=== PATIENT | male | born 1945 | race Caucasian/White ===

== ENCOUNTER 2016-10-08 00:33 | Inpatient (IN) | payer OTHER, MEDICARE ==
[~2016-10-08] VITALS: Ht 172.7 cm; Wt 133.6 kg
[2016-10-08] VITALS (11 sets, daily range): BP systolic 99–143; BP diastolic 60–83; PULSE 63–81; TEMP 36.6–37.9; O2SAT 93–96; Ht 172.7 cm; Wt 133.6 kg
[2016-10-08] MEDS ORDERED: SODIUM CHLORIDE 0.9% 1000ML 1,000 ML IV STA (01:01)
--- NOTE | 2016-10-08 01:02 | EMERGENCY ROOM VISIT NOTE ---
History Report prepared by Maryibe: Lois Covington Under the Supervision of: Dr. Lois Diaz M.D. First contact with patient: 00:42 Chief Complaint: RECTAL PAIN Stated Complaint: RECTAL PAIN - HEMORROID History of Present Illness The patient is a 70 year old male who presents to the Emergency Room with complaints of worsening rectal pain over the past 3 weeks. His current discomfort is a 10/10 in severity. The patient states that he was constipated 3 weeks ago and after finally having a bowel movement, he noticed that he had a hard mass in the rectal area. Since then, it has protruded farther out of his rectum. Since his pain began, he has not been eating much. He has not had a bowel movement since "cleaning himself out" 3 weeks ago. The patient believes that it could be a hemorrhoid. Source of History: patient Onset: 3 weeks ago Position: other (rectal) Symptom Intensity: 10/10 Timing: worsening Note: Other symptoms: constipation Review of Systems See HPI for pertinent positives & negatives. A total of 10 systems reviewed and were otherwise negative. Past Medical & Surgical Medical Problems: (1) Dyslipidemia (2) Hypertension (3) Sleep apnea Surgical Problems: (1) Status post cholecystectomy Family History Heart disease Social History Smoking Status: Never Smoker Marital Status: Housing Status: lives with significant other Occupation Status: retired Current/Historical Medications Scheduled Acetaminophen (Tylenol Arthritis Ext Rel), 650 MG PO BID Aspirin (Aspirin 81), 81 MG PO 3XWK Atorvastatin (Lipitor), 40 MG PO DAILY Cholecalciferol (Vitamin D3), 1,000 UNITS PO DAILY Ciprofloxacin Hcl (Cipro), 500 MG PO BID Docusate Sodium (Stool Softener), 100 MG PO BID Docusate Sodium (Colace), 1 CAP PO BID Hydrochlorothiazide (Hctz), 50 MG PO DAILY Lansoprazole (Prevacid), 15 MG PO DAILY Lisinopril (Zestril), 20 MG PO DAILY Metronidazole (Flagyl), 250 MG PO TID Multivitamin (Multivitamin), 1 TAB PO DAILY Scheduled PRN Hydrocodone/Acetaminophen 5MG/325MG (Keene 5MG/325MG), 1-2 TABLET PO Q4H PRN for Pain Allergies Coded Allergies: No Known Allergies (Unverified , 10/08/16) Physical Exam Vital Signs Date Time Temp Pulse Resp B/P Pulse Ox O2 Delivery O2 Flow Rate FiO2 10/08/16 02:05 84 20 122/69 94 Room Air 10/08/16 01:20 93 10/08/16 00:37 37.0 104 20 150/86 96 Room Air Physical Exam Vital signs reviewed. General: Well-appearing 70 year old male, in no significant distress. HEENT: No scleral icterus, PERRLA, neck supple. Atraumatic. Cardiovascular: Regular rate and rhythm, no extra sounds. Pulmonary: Clear to auscultation bilaterally, normal work of breathing. Abdomen: Obese, soft, nontender, nondistended, positive bowel sounds. Rectal: 2 cm erythematous and fluctuant area to the posterior aspect of the rectum with tenderness to palpation. Musculoskeletal: Atraumatic, no peripheral edema. Neurologic: Patient awake alert and oriented x 3, full strength in all 4 extremities. Cranial nerves 2 through 12 grossly intact. Skin: Warm, dry, no rash Medical Decision & Procedures ER Provider Diagnostic Interpretation: CT results as stated below per my review and radiologist interpretation: CT ABDOMEN & PELVIS: Right perianal fluid collection measuring approximately 4.4 x 2.5 cm with surroudnign stranding compatible with abscess. Fatty replacement of the pancreas. Nonspecific mild bilateral perinephric stranding. Small fat- containing inguinal hernias. Prior cholecystectomy. Additional incidental findings. Radiologist; Madison Romero MD Laboratory Results Test 10/08/16 01:10 Immature Granulocyte % (Auto) 0.6 % White Blood Count 15.75 K/uL (4.8-10.8) Red Blood Count 4.47 M/uL (4.7-6.1) Hemoglobin 13.6 g/dL (14.0-18.0) Hematocrit 40.0 % (42-52) Mean Corpuscular Volume 89.5 fL (80-100) Mean Corpuscular Hemoglobin 30.4 pg (25-34) Mean Corpuscular Hemoglobin Concent 34.0 g/dl (32-36) Platelet Count 284 K/uL (130-400) Mean Platelet Volume 10.0 fL (7.4-10.4) Neutrophils (%) (Auto) 79.7 % Lymphocytes (%) (Auto) 9.5 % Monocytes (%) (Auto) 9.1 % Eosinophils (%) (Auto) 0.8 % Basophils (%) (Auto) 0.3 % Neutrophils # (Auto) 12.56 K/uL (1.4-6.5) Lymphocytes # (Auto) 1.50 K/uL (1.2-3.4) Monocytes # (Auto) 1.43 K/uL (0.11-0.59) Eosinophils # (Auto) 0.12 K/uL (0-0.5) Basophils # (Auto) 0.05 K/uL (0-0.2) Immature Granulocyte # (Auto) 0.09 K/uL (0.00-0.02) Red Blood Cell Morphology Unremarkable Total Bilirubin 0.7 mg/dl (0.2-1) Direct Bilirubin 0.2 mg/dl (0-0.2) Aspartate Amino Transf (AST/SGOT) 29 U/L (15-37) Alanine Aminotransferase (ALT/SGPT) 37 U/L (12-78) Alkaline Phosphatase 75 U/L (45-117) Total Protein 7.3 gm/dl (6.4-8.2) Albumin 2.8 gm/dl (3.4-5.0) Laboratory results per my review. Medications Administered Medications (Trade) Dose Ordered Sig/Kathryn Route Start Time Stop Time Status Last Admin Dose Admin Sodium Chloride (Nss 1000ml) 1,000 ml @ 125 mls/hr Q8H STAT IV 10/08/16 01:01 10/08/16 04:22 DC 10/08/16 01:01 125 MLS/HR Ciprofloxacin/ Dextrose (Cipro / D5w) 400 mg NOW STAT IV 10/08/16 02:13 10/08/16 02:15 DC 10/08/16 02:25 400 MG Metronidazole (Flagyl / Nss) 500 mg NOW STAT IV 10/08/16 02:13 10/08/16 02:15 DC 10/08/16 02:25 500 MG ED Course 0055: The patient was evaluated in room A10. A complete history and physical examination was performed. 0101: Ordered NSS 1000 ml @ 125 mls/hr IV. 0213: Ordered Flagyl/NSS 500 mg IV, Cipro/D5w 400 mg IV. 0239: I discussed the case with Dr. Bruno - General Surgery. He recommended starting the patient on antibiotics and to speak with medicine regarding hospitalization. 0241: Upon reevaluation, the patient is resting comfortably. I discussed laboratory and radiographic results with the patient. He verbalized agreement of the treatment plan. 0254: I spoke with Dr. Tucker of the [facility]. The patient will be evaluated for further management and care. Medical Decision Differential diagnosis: Perirectal abscess, hemorrhoid, diverticulitis, enteric fistula, rectal fissure , rectal prolapse. This pt was evaluated and appeared to be in no distress. IV access was obtained and lab work was drawn. Pt was hydrated with NSS. Lab work reveals a leukocytosis and the pt was medicated with IV cipro and flagyl. CT abd pelvis reveals a perirectal abscess. Case was d/w Dr Bruno of surgery who has requested admission to the hospitalist service. Dr Tucker was c/s. Pt is aware of the plan and agrees. Consults Time Called: [phone] Consulting Physician: Dr. Bruno - General Surgery Returned Call: [phone] I discussed the case with him. He recommended starting the patient on antibiotics and to speak with medicine regarding hospitalization. Additional Consults: Time Called: 024 Consulted Physician: Dr. Tucker - [facility] Returned Call: 025 Additional Comments: I discussed the case with him. The patient will be evaluate for further management. Impression Primary Impression: Perirectal abscess Scribe Attestation The scribe's documentation has been prepared under my direction and personally reviewed by me in its entirety. I confirm that the note above accurately reflects all work, treatment, procedures, and medical decision making performed by me. Departure Information Dispostion Being Evaluated By Hospitalist Prescriptions Docusate Sodium (COLACE) 100 Mg Cap 1 CAP PO BID for 15 Days, #30 CAP Prov: Alexi Chang MD 10/09/16 Metronidazole (Flagyl) 250 Mg Tab 250 MG PO TID, #30 TAB Prov: Agustín BrunoO. 10/08/16 Ciprofloxacin Hcl (CIPRO) 500 Mg Tab 500 MG PO BID, #20 TAB Prov: Agustín BrunoO. 10/08/16 Hydrocodone/Acetaminophen 5MG/325MG (Keene 5MG/325MG) Tab 1-2 TABLET PO Q4H Y for Pain, #40 TAB Prov: Agustín BrunoO. 10/08/16 Referrals No Doctor, Assigned (PCP) Patient Instructions [facility]
[2016-10-08] MEDS ORDERED: OPTIRAY 320 IV PRN (01:15)
[2016-10-08 01:23] LABS: MEAN CELL VOLUME 89.5 fL (80-100); MEAN CORPUSCULAR HEMOGLOBIN 30.4 pg (25-34); PLATELET COUNT 284 K/uL (130-400); RED BLOOD COUNT 4.47 M/uL (4.7-6.1); WHITE BLOOD COUNT 15.75 K/uL (4.8-10.8)
[2016-10-08] MEDS ORDERED: LISI-725 PO (01:29)
[2016-10-08] MEDS ORDERED: HYDR50TA3 PO (01:30)
[2016-10-08] MEDS ORDERED: ATOR-24 PO (01:31)
[2016-10-08] MEDS ORDERED: LANS15CA6 PO (01:31)
[2016-10-08] MEDS ORDERED: MULT-506 PO (01:32)
[2016-10-08] MEDS ORDERED: ASPI-435 PO (01:33)
[2016-10-08] MEDS ORDERED: DOCU100C PO (01:35)
[2016-10-08] MEDS ORDERED: ACET1TAB84 PO (01:36)
[2016-10-08] MEDS ORDERED: CHOL1000 PO (01:38)
[2016-10-08 01:41] LABS: BASO % 0.3 %; BASO ABS # 0.05 K/uL (0-0.2); COMPLETE YES; EOS % 0.8 %; IG% 0.6 %; LYMPH % 9.5 %; MONO % 9.1 %; NEUT % 79.7 %
[2016-10-08 01:42] LABS: BUN/CREATININE RATIO 13.4 (10-20); CALCIUM 9.6 mg/dl (8.5-10.1); CREATININE 1.1 mg/dl (0.60-1.40); MAGNESIUM 1.6 mg/dl (1.8-2.4); POTASSIUM 3.5 mmol/L (3.5-5.1)
[2016-10-08] MEDS ORDERED: METRONIDAZOLE 500MG / 100ML NSS IV STA (02:13)
[2016-10-08] MEDS ORDERED: CIPROFLOXACIN 400MG / 200ML D5W IV STA (02:13)
--- NOTE | 2016-10-08 03:39 | History and Physical ---
History & Physical Date & Time of Service: Oct 08, 2016 at 03:39 . Chief Complaint: rectal pain . Primary Care Physician: History of Present Illness Source: patient, hospital records 70 YO male from [place], visiting family in the area. History of hypertension, dyslipidemia, sleep apnea, and other problems noted below. Developed rectal pain a few weeks ago which has worsened. Pain: nonradiating, constant, aggravated by sitting, severe intensity. He did not try taking any analgesics at home. No associated fever; no hematochezia. . Past Medical/Surgical History Chronic Medical Problems: (1) Dyslipidemia Status: Chronic (2) Hypertension Status: Chronic (3) Sleep apnea Status: Chronic Surgical Problems: (1) Status post cholecystectomy Status: Chronic . Family History FATHER Alcoholism MOTHER Cervical cancer BROTHER Coronary artery disease BROTHER Coronary artery disease Social History Smoking Status: Never Smoker Alcohol Use: occasionally Marital Status: Occupational Status: retired Allergies Coded Allergies: No Known Allergies (Unverified , 10/08/16) Home Medications Scheduled Acetaminophen (Tylenol Arthritis Ext Rel), 650 MG PO BID Aspirin (Aspirin 81), 81 MG PO 3XWK Atorvastatin (Lipitor), 40 MG PO DAILY Cholecalciferol (Vitamin D3), 1,000 UNITS PO DAILY Docusate Sodium (Stool Softener), 100 MG PO BID Hydrochlorothiazide (Hctz), 50 MG PO DAILY Lansoprazole (Prevacid), 15 MG PO DAILY Lisinopril (Zestril), 20 MG PO DAILY Multivitamin (Multivitamin), 1 TAB PO DAILY Review of Systems Constitutional: + weight loss (few pounds intentionally), No fever Eyes: No diplopia, No worsening of vision ENT: No hearing loss, No nasal symptoms, No sore throat Respiratory: + problem reported (sleep apnea, uses CPAP), No cough, No shortness of breath Cardiovascular: + edema, No chest pain, No palpitations Abdomen: + constipation, + pain (perirectal), No GI bleeding, No diarrhea, No nausea, No vomiting Musculoskeletal: + joint pain (knee pain) Genitourinary - Male: No dysuria, No hematuria Neurologic: + problem reported (occasional headaches) Endocrine: No excessive thirst, No excessive urination Hematologic / Lymphatic: + abnormal bleeding/bruising (bruises easily) Integumentary: No new/changing skin lesions, No rash Physical Exam Vital Signs Date Time Temp Pulse Resp B/P Pulse Ox O2 Delivery O2 Flow Rate FiO2 10/08/16 02:05 84 20 122/69 94 Room Air 10/08/16 01:20 93 10/08/16 00:37 37.0 104 20 150/86 96 Room Air General Appearance: WD/WN, + mild distress Head: normocephalic, atraumatic Eyes: normal inspection, PERRL, EOMI, sclerae normal, + pertinent finding ( conjunctivae pink) ENT: normal ENT inspection, hearing grossly normal, pharynx normal, + pertinent finding (no upper teeth) Neck: supple, no adenopathy, thyroid normal, no JVD, trachea midline Respiratory/Chest: lungs clear, no respiratory distress, no accessory muscle use Cardiovascular: regular rate, rhythm, no gallop, no JVD, no murmur, normal peripheral pulses, + pertinent finding (1+ pretibial edema) Abdomen/GI: normal bowel sounds, non tender, soft, no organomegaly, no pulsatile mass, + pertinent finding (right perirectal induration + tenderness) Extremities/Musculoskelatal: normal inspection, no calf tenderness, normal capillary refill Neurologic/Psych: tin stacker II-XII nml as tested (PERRL, EOMI, no facial palsy), alert, normal mood/affect, oriented x 3 Skin: normal color, warm/dry, no rash, + pertinent finding (left pretibial abrasion without erythema or drainage) Lymphatic: no adenopathy Diagnostics Laboratory Results Results Past 24 Hours Test 10/08/16 01:10 Range/Units White Blood Count 15.75 4.8-10.8 K/uL Red Blood Count 4.47 4.7-6.1 M/uL Hemoglobin 13.6 14.0-18.0 g/dL Hematocrit 40.0 42-52 % Mean Corpuscular Volume 89.5 80-100 fL Mean Corpuscular Hemoglobin 30.4 25-34 pg Mean Corpuscular Hemoglobin Concent 34.0 32-36 g/dl Platelet Count 284 130-400 K/uL Mean Platelet Volume 10.0 7.4-10.4 fL Neutrophils (%) (Auto) 79.7 % Lymphocytes (%) (Auto) 9.5 % Monocytes (%) (Auto) 9.1 % Eosinophils (%) (Auto) 0.8 % Basophils (%) (Auto) 0.3 % Neutrophils # (Auto) 12.56 1.4-6.5 K/uL Lymphocytes # (Auto) 1.50 1.2-3.4 K/uL Monocytes # (Auto) 1.43 0.11-0.59 K/uL Eosinophils # (Auto) 0.12 0-0.5 K/uL Basophils # (Auto) 0.05 0-0.2 K/uL RDW Standard Deviation 41.1 36.4-46.3 fL RDW Coefficient of Variation 12.7 11.5-14.5 % Immature Granulocyte % (Auto) 0.6 % Immature Granulocyte # (Auto) 0.09 0.00-0.02 K/uL Red Blood Cell Morphology Unremarkable Sodium Level 137 136-145 mmol/L Potassium Level 3.5 3.5-5.1 mmol/L Chloride Level 99 98-107 mmol/L Carbon Dioxide Level 28 21-32 mmol/L Anion Gap 10.0 3-11 mmol/L Blood Urea Nitrogen 15 7-18 mg/dl Creatinine 1.10 0.60-1.40 mg/dl Est Creatinine Clear Calc Drug Dose 81.1 ml/min Estimated GFR () 77.3 Estimated GFR (Non- 66.7 BUN/Creatinine Ratio 13.4 10-20 Random Glucose 135 70-99 mg/dl Calcium Level 9.6 8.5-10.1 mg/dl Magnesium Level 1.6 1.8-2.4 mg/dl Total Bilirubin 0.7 0.2-1 mg/dl Direct Bilirubin 0.2 0-0.2 mg/dl Aspartate Amino Transf (AST/SGOT) 29 15-37 U/L Alanine Aminotransferase (ALT/SGPT) 37 12-78 U/L Alkaline Phosphatase 75 45-117 U/L Total Protein 7.3 6.4-8.2 gm/dl Albumin 2.8 3.4-5.0 gm/dl Diagnostic Radiology PORT CHEST X-RAY (preliminary interpretation by undersigned): atelectasis left base no infiltrates, effusions, CHF CT ABDOMEN AND PELVIS (preliminary interpretation by [facility]) right perirectal abscess . EKG EKG performed at 03:42 reviewed and demonstrated NSR at 86 / minute, no acute ST or T-wave abnormalities. . Impression Assessment and Plan PERIRECTAL ABSCESS ED physician discussed case with General Surgery. IV antibiotic therapy with ciprofloxacin and metronidazole. I&D anticipated. Analgesics PRN. HYPERTENSION Hemodynamically stable. Hold lisinopril an HCTZ for surgery, then resume postoperatively. SLEEP APNEA Continue CPAP. HYPOMAGNESEMIA Mg = 1.6. Hypomagnesemia probably due to diuretic therapy. IV replacement. Follow. DYSLIPIDEMIA Continue atorvastatin. VTE PROPHYLAXIS No anticoagulants in anticipation of surgery. SCD's. Ambulate. RESUSCITATION STATUS Discussed with patient. He has a living will. He would like resuscitation attempted in the event of a cardiopulmonary arrest if there is a reasonable chance of a meaningful recovery, but does not want prolonged extraordinary measures if prognosis is poor. Therefore, code status = "Level 1" (full resuscitation). INCOMPLETE DATA Records requested from his district branch manager in [place]. DISPOSITION Admit to Med-Surg Unit. Expected discharge to home. Follow-up with his medical providers in [place]. . VTE Prophylaxis VTE Risk Assessment Done? Y/N: Yes Risk Level: Moderate Given or contraindicated: SCD's
[2016-10-08] MEDS ORDERED: HYDROmorphone INJ 1 MG/ML SYR IV PRN ×2 (03:45→08:45)
[2016-10-08] MEDS ORDERED: ACETAMINOPHEN 500 MG TAB PO PRN (03:45)
[2016-10-08] MEDS ORDERED: POTASSIUM CHLORIDE IV SCH (04:00)
[2016-10-08] MEDS ORDERED: MAG SULFATE IV SCH (04:00)
[2016-10-08] MEDS ORDERED: [UNRECOGNIZED DRUG - OTHER] IV SCH (04:00)
--- NOTE | 2016-10-08 06:52 | Surgery Consultation ---
Consultation Date of Consultation: Oct 08, 2016. Attending Physician: Alexi Chang MD Reason for Consultation: saleem rectal abcess History of Present Illness pt with about a mos history of constipation....yesterday had severe /unbearable pain and came to ER Past Medical/Surgical History Medical Problems: (1) Dyslipidemia Status: Chronic (2) Hypertension Status: Chronic (3) Perirectal abscess Status: Acute (4) Sleep apnea Status: Chronic Surgical Problems: (1) Status post cholecystectomy Status: Chronic Family History Alcoholism FATHER Cervical cancer MOTHER Coronary artery disease BROTHER BROTHER Social History Smoking Status: Never Smoker Alcohol Use: occasionally Marital Status: Housing Status: lives with significant other Occupation Status: retired Allergies Coded Allergies: No Known Allergies (Unverified , 10/08/16) Home Medications Scheduled Acetaminophen (Tylenol Arthritis Ext Rel), 650 MG PO BID Aspirin (Aspirin 81), 81 MG PO 3XWK Atorvastatin (Lipitor), 40 MG PO DAILY Cholecalciferol (Vitamin D3), 1,000 UNITS PO DAILY Docusate Sodium (Stool Softener), 100 MG PO BID Hydrochlorothiazide (Hctz), 50 MG PO DAILY Lansoprazole (Prevacid), 15 MG PO DAILY Lisinopril (Zestril), 20 MG PO DAILY Multivitamin (Multivitamin), 1 TAB PO DAILY Current Inpatient Medications Current Inpatient Medications Medications (Trade) Dose Ordered Sig/Kathryn Route Start Time Stop Time Status Last Admin Dose Admin Ioversol (Optiray 320) 100 ml UD PRN IV 10/08/16 01:15 10/12/16 01:14 Hydromorphone HCl (Dilaudid Inj) 1 mg Q2H PRN IV 10/08/16 03:45 10/22/16 03:44 Atorvastatin Calcium (Lipitor Tab) 40 mg DAILY PO 10/08/16 09:00 11/07/16 08:59 Docusate Sodium (coLACE CAP) 100 mg BID PO 10/08/16 09:00 11/07/16 08:59 Multivitamins (Multivitamin Tab) 1 tab DAILY PO 10/08/16 09:00 11/07/16 08:59 Pantoprazole Sodium (Protonix Tab) 40 mg QAM PO 10/08/16 09:00 11/07/16 08:59 Acetaminophen (Tylenol Tab) 1,000 mg Q8 PRN PO 10/08/16 03:45 11/07/16 03:44 Hydrochlorothiazide 50 mg 50 mg DAILY PO 10/09/16 09:00 11/08/16 08:59 Magnesium Sulfate 1 gm/Potassium Chloride 20 meq/ Dextrose/Lactated Ringer's 1,012 ml @ 150 mls/hr Q6H45M IV 10/08/16 04:00 11/07/16 03:59 10/08/16 05:12 150 MLS/HR Ciprofloxacin/ Dextrose 400 mg/ Prmx 200 ml @ 100 mls/hr Q12@0200,1400 IV 10/08/16 14:00 10/18/16 13:59 Metronidazole/Prmx (Flagyl / Nss/ Premixed Nss) 100 ml @ 100 mls/hr Q8@0200,1000,1800 IV 10/08/16 10:00 10/18/16 09:59 Aspirin (Ecotrin Tab) 81 mg MoWeFr@0900 PO 10/11/16 09:00 11/10/16 08:59 Lisinopril (Zestril Tab) 20 mg DAILY PO 10/09/16 09:00 11/08/16 08:59 Physical Exam Date Time Temp Pulse Resp B/P Pulse Ox O2 Delivery O2 Flow Rate FiO2 10/08/16 04:10 Room Air 10/08/16 04:10 36.6 80 18 131/80 96 Room Air 10/08/16 03:44 136/82 10/08/16 02:05 84 20 122/69 94 Room Air 10/08/16 01:20 93 10/08/16 00:37 37.0 104 20 150/86 96 Room Air General Appearance: + mild distress Head: normocephalic Eyes: EOMI, sclerae normal ENT: hearing grossly normal Neck: supple, no adenopathy Respiratory/Chest: lungs clear Cardiovascular: no edema Abdomen/GI: non tender, soft, + pertinent finding (moderate sized fluid collection on right side of rectum. extremely tender. unable to perform formal rectal exam secondary to pain) Neurologic/Psych: normal mood/affect, oriented x 3 Skin: warm/dry, no rash Laboratory Results Last 24 Hours Test 10/08/16 01:10 White Blood Count 15.75 K/uL Red Blood Count 4.47 M/uL Hemoglobin 13.6 g/dL Hematocrit 40.0 % Mean Corpuscular Volume 89.5 fL Mean Corpuscular Hemoglobin 30.4 pg Mean Corpuscular Hemoglobin Concent 34.0 g/dl Platelet Count 284 K/uL Mean Platelet Volume 10.0 fL Neutrophils (%) (Auto) 79.7 % Lymphocytes (%) (Auto) 9.5 % Monocytes (%) (Auto) 9.1 % Eosinophils (%) (Auto) 0.8 % Basophils (%) (Auto) 0.3 % Neutrophils # (Auto) 12.56 K/uL Lymphocytes # (Auto) 1.50 K/uL Monocytes # (Auto) 1.43 K/uL Eosinophils # (Auto) 0.12 K/uL Basophils # (Auto) 0.05 K/uL RDW Standard Deviation 41.1 fL RDW Coefficient of Variation 12.7 % Immature Granulocyte % (Auto) 0.6 % Immature Granulocyte # (Auto) 0.09 K/uL Red Blood Cell Morphology Unremarkable Sodium Level 137 mmol/L Potassium Level 3.5 mmol/L Chloride Level 99 mmol/L Carbon Dioxide Level 28 mmol/L Anion Gap 10.0 mmol/L Blood Urea Nitrogen 15 mg/dl Creatinine 1.10 mg/dl Est Creatinine Clear Calc Drug Dose 81.1 ml/min Estimated GFR () 77.3 Estimated GFR (Non- 66.7 BUN/Creatinine Ratio 13.4 Random Glucose 135 mg/dl Calcium Level 9.6 mg/dl Magnesium Level 1.6 mg/dl Total Bilirubin 0.7 mg/dl Direct Bilirubin 0.2 mg/dl Aspartate Amino Transf (AST/SGOT) 29 U/L Alanine Aminotransferase (ALT/SGPT) 37 U/L Alkaline Phosphatase 75 U/L Total Protein 7.3 gm/dl Albumin 2.8 gm/dl Assessment & Plan 1. perirectal abcess will need I and D with sedation discussed risk/options/answered questions cont IV antibiotics will perform artis
[2016-10-08] MEDS ORDERED: FENTANYL CITRATE INJ 50 MCG/1 ML 2 ML VIAL ONE (07:14)
[2016-10-08] MEDS ORDERED: MIDAZOLAM HCL 1 MG/ML 2ML VIAL ONE (07:14)
[2016-10-08] MEDS ORDERED: LIDOCAINE HCL 2% 2 ML VIAL (20MG/ML) ONE (07:19)
[2016-10-08] MEDS ORDERED: PROPOFOL IV EMULSION 10 MG/ML 20 ML VIAL IV ONE (07:19)
[2016-10-08] MEDS ORDERED: ONDANSETRON INJ 2 MG/ML 2 ML VIAL ONE (07:19)
--- NOTE | 2016-10-08 07:23 | DIAGNOSTIC IMAGING REPORT ---
SINGLE VIEW CHEST CLINICAL HISTORY: Perianal abscess. FINDINGS: An AP, portable, upright chest radiograph is obtained. No prior studies are available for comparison at the time of dictation. The examination is degraded by portable technique and patient rotation. The heart is enlarged and there is atherosclerotic calcification of the thoracic aorta. There is minimal bibasilar atelectasis. Small calcified granulomas are suspected. No airspace consolidation, large pleural effusion, or pneumothorax is seen. The skeletal structures are osteopenic. The bony thorax is grossly intact. IMPRESSION: Mild cardiac enlargement with no acute cardiopulmonary abnormality. Electronically signed by: Zheng Sahu M.D. 10/08/2016 7:22 AM Dictated Date/Time: 10/08/2016 7:21 AM
--- NOTE | 2016-10-08 07:48 | DIAGNOSTIC IMAGING REPORT ---
CT SCAN OF THE ABDOMEN AND PELVIS WITH IV CONTRAST CLINICAL HISTORY: Perianal abscess. COMPARISON STUDY: No priors. TECHNIQUE: Following the IV administration of 92 cc of Optiray 320, CT scan of the abdomen and pelvis is performed from the lung bases to the proximal femora. Images are reviewed in the axial, sagittal, and coronal planes. IV contrast was administered without complication. Automated dose control exposure was utilized. CT DOSE: 1612.22 mGycm FINDINGS: Lung bases: The heart is mildly enlarged and without pericardial effusion. The lung bases are clear. There is a tiny hiatal hernia. Liver: The contrast-enhanced liver is normal in size, contour, and attenuation. There is no intrahepatic biliary ductal dilatation. The hepatic veins and portal veins are patent. Gallbladder: Surgically absent noting clips in the gallbladder fossa. Spleen: Normal in size and attenuation. Pancreas: There is near complete fatty atrophy of the pancreas. Adrenal glands: Unremarkable. Kidneys: The contrast enhanced kidneys are atrophic and without hydronephrosis. Bilateral parapelvic cysts are noted. The kidneys enhance symmetrically. Abdominal vasculature: The abdominal aorta is normal in course and caliber noting mild to moderate atherosclerotic calcification. Bowel: The small bowel and colon are normal in course and caliber. There is mild colonic fecal retention. The appendix is well-visualized and normal. There is a thick walled and peripherally enhancing perianal fluid collection. This is likely located just anterior to the anal sphincter and measures approximately 5 x 3.5 x 2.5 cm. There is surrounding inflammatory change in the perineal fat, left greater than right consistent with cellulitis. There is no clear evidence of fistulous tract. This is located below the levator musculature. Peritoneum: There is no intraperitoneal free air or abdominal ascites. Lymphadenopathy: None. Pelvic viscera: The bladder, prostate, and seminal vesicles are normal as visualized. There are small fat-containing inguinal hernias. Skeletal structures: The skeletal structures are osteopenic. There is mild lumbosacral spondylosis. No lytic or blastic lesions are seen. IMPRESSION: 1. Findings are consistent with a 5 x 3.5 x 2.5 cm perianal abscess with surrounding cellulitis. This appears to be located just anterior to the anal ring, and surrounding inflammation is slightly greater on the left than the right. No fistula is identified. 2. Additional findings as above. Electronically signed by: Zheng Sahu M.D. 10/08/2016 7:46 AM Dictated Date/Time: 10/08/2016 7:39 AM
--- NOTE | 2016-10-08 08:22 | Discharge Instructions ---
Discharge Instructions Admission Reason for Admission: Perirectal Abscess Discharge Discharge Diagnosis / Problem: perirectal abcess Discharge Goals Goal(s): Decrease discomfort, Improve function Activity Recommendations Activity Limitations: resume your previous activity Exercise/Sports Limitations: until after follow-up appointment Shower/Bathe: tomorrow . Instructions / Follow-Up Instructions / Follow-Up call tuesday [phone] for follow up appointment with ... I want to see you sometime tuesday. Ok to take sitz baths Current Hospital Diet Patient's current hospital diet: Discharge Diet Recommended Diet: Regular Diet Procedures Procedures Performed: incision /drainage of perirectal abcess Pending Studies Studies pending at discharge: no Medical Emergencies . Who to Call and When: Medical Emergencies: If at any time you feel your situation is an emergency, please call 911 immediately. . Non-Emergent Contact Non-Emergency issues call your: Surgeon Call Non-Emergent contact if: temperature is above 101, wound has increased drainage, wound has increased redness, wound has increased pain . "Provider Documentation" section prepared by Agustín Bruno. VTE Core Measure Inpt VTE Proph given/why not?: SCD's
[2016-10-08] MEDS ORDERED: HYDR-5688 PO (08:25)
[2016-10-08] MEDS ORDERED: METR1TAB4 PO (08:25)
[2016-10-08] MEDS ORDERED: CIPR1TAB10 PO (08:25)
[2016-10-08] MEDS ORDERED: MAGNESIUM SULFATE 1GM / D5W 1 GM in PREMIXED IN D5W 100 ML IV ONE (08:30)
[2016-10-08] MEDS ORDERED: EpHEDrine SULFATE INJ 50 MG/ML AMP IV PRN (08:45)
[2016-10-08] MEDS ORDERED: FENTANYL CITRATE INJ 50 MCG/1 ML 2 ML VIAL IV PRN (08:45)
[2016-10-08] MEDS ORDERED: SUCCINYLCHOLINE CHLORIDE 20 MG/ML 10 ML VIAL IV ONE (08:45)
[2016-10-08] MEDS ORDERED: ONDANSETRON INJ 2 MG/ML 2 ML VIAL IV PRN (08:45)
[2016-10-08] MEDS ORDERED: ATROPINE SULFATE 0.1 MG/ML 5ML SYR IV PRN (08:45)
--- NOTE | 2016-10-08 08:48 | [facility] Operative Report ---
Operative Report Operative Date Oct 08, 2016. Pre-Operative Diagnosis saleem rectal abcess Post-Operative Diagnosis saleem rectal abcess Procedure(s) Performed incision/drainage/culture of perirectal abcess Findings large perirectal abcess. Specimens fluid for culture Anesthesia general Complication(s) None Disposition Recovery Room / PACU I attest to the content of the Intraoperative Record and any orders documented therein. Any exceptions are noted below.
[2016-10-08] MEDS ORDERED: HYDROCODONE/ACETAMOPHEN 5/325MG TAB PO PRN (09:00)
[2016-10-08] MEDS ORDERED: LISINOPRIL 20 MG TAB PO SCH (09:00)
[2016-10-08] MEDS ORDERED: HYDROCHLOROTHIAZIDE 50 MG TAB PO SCH (09:00)
[2016-10-08] MEDS ORDERED: ASPIRIN 81 MG ECTAB PO SCH (09:00)
[2016-10-08] MEDS ORDERED: BUPIVACAINE/EPINEPHRINE 0.5% MPF 1:200,000 30 ML VIAL INJ ONE (09:00)
--- NOTE | 2016-10-08 09:28 | Anesthesiology Progress Note ---
Anesthesia Post Op Note Date & Time Oct 08, 2016 at 09:28 Vital Signs Pain Intensity: 0 Vital Signs Past 12 Hours Date Time Temp Pulse Resp B/P Pulse Ox O2 Delivery O2 Flow Rate FiO2 10/08/16 09:18 139/84 10/08/16 09:16 70 23 10/08/16 09:16 79 23 100 10/08/16 09:13 128/88 10/08/16 09:11 73 18 10/08/16 09:11 74 18 100 10/08/16 09:10 82 13 152/74 100 Mask 10 10/08/16 09:08 152/74 10/08/16 09:06 75 16 100 10/08/16 09:06 75 16 10/08/16 09:02 137/78 10/08/16 09:01 84 19 10/08/16 09:01 37.0 77 14 137/76 97 Mask 10 10/08/16 09:01 84 19 /95 100 10/08/16 07:15 37.1 81 18 108/60 93 Room Air 10/08/16 04:10 Room Air 10/08/16 04:10 36.6 80 18 131/80 96 Room Air 10/08/16 03:44 136/82 10/08/16 02:05 84 20 122/69 94 Room Air 10/08/16 01:20 93 10/08/16 00:37 37.0 104 20 150/86 96 Room Air Notes Mental Status: alert / awake / arousable, participated in evaluation Pt Amnestic to Procedure: Yes Nausea / Vomiting: adequately controlled Pain: adequately controlled Airway Patency, RR, SpO2: stable & adequate BP & HR: stable & adequate Hydration State: stable & adequate Anesthetic Complications: no major complications apparent
--- NOTE | 2016-10-08 09:36 | OPERATIVE REPORT ---
DATE OF OPERATION: 10/08/2016 PREOPERATIVE DIAGNOSIS: Perirectal abscess. POSTOPERATIVE DIAGNOSIS: Same. PROCEDURE PERFORMED: Incision and drainage of perirectal abscess. SURGEON: Dr. Bruno. ESTIMATED BLOOD LOSS: Approximately 10 mL. COMPLICATIONS: No immediate. ANESTHESIA: General. CONDITION: The patient tolerated the procedure well. DESCRIPTION OF PROCEDURE: After informed consent was obtained, the patient was taken to the operating suite, placed in the supine position. After successful intubation, the patient was placed on a high lithotomy position. The rectal area was sterilely prepped and draped in usual fashion. Visible abscess was seen and opened with a 15-blade scalpel into a relatively superficial pocket. I got probably 200 mL of purulent fluid out. I was then able to finger fracture and aide any other debris that was in the rectum fossa. I then thoroughly irrigated the wound. We did obtain some fluid for Gram stain culture and sensitivity. I then packed the wound with half inch iodoform packing, a sterile dressing was applied. The patient was placed back in supine position, extubated, and transferred to recovery in stable condition. I attest to the content of the Intraoperative Record and any orders documented therein. Any exceptions are noted below. MTDD
[2016-10-08] MEDS ORDERED: METRONIDAZOLE / NSS 500 MG in PREMIXED NSS 100 ML IV SCH (10:00)
[2016-10-08] MEDS: ATORVASTATIN 20 MG TAB PO SCH (10:04)
[2016-10-08] MEDS: DOCUSATE SODIUM 100 MG CAP PO SCH ×2 (10:04→21:08)
[2016-10-08] MEDS: MULTIVITAMIN TAB PO SCH (10:06)
[2016-10-08] MEDS: PANTOprazole SOD 40 MG TAB PO SCH (10:06)
[2016-10-08] MEDS ORDERED: NURSING VERBAL MED ORDER ONE ×2 (10:45)
[2016-10-08] MEDS: METRONIDAZOLE 250 MG TAB PO SCH ×3 (10:49→21:08)
[2016-10-08] MEDS: CIPROFLOXACIN 500 MG TAB PO SCH ×2 (10:49→21:08)
[2016-10-08] MEDS ORDERED: CIPROFLOXACIN / D5W 400 MG in PREMIXED IN D5W 200 ML IV SCH (14:00)
[2016-10-09 03:32] VITALS: BP 120/68; PULSE 64; TEMP 37.1; O2SAT 91
--- NOTE | 2016-10-09 06:29 | Surgery Progress Note ---
Surgery Progress Note Date of Service Oct 09, 2016. Subjective Post OP Day: 1 + pain controlled Objective Vital Signs: Date Time Temp Pulse Resp B/P Pulse Ox O2 Delivery O2 Flow Rate FiO2 10/09/16 03:32 37.1 64 16 120/68 91 Room Air 10/08/16 22:58 36.9 69 16 99/63 93 Room Air 10/08/16 20:50 72 18 119/62 95 Room Air 10/08/16 19:40 Room Air 10/08/16 16:59 Room Air 10/08/16 15:45 37.0 66 18 108/69 95 Room Air 10/08/16 12:50 63 18 105/70 94 Room Air 10/08/16 12:00 36.6 10/08/16 11:00 76 16 127/74 94 Room Air 10/08/16 10:30 71 16 111/69 96 Room Air 10/08/16 10:11 37.9 73 16 135/82 93 Room Air 10/08/16 09:54 37.2 71 16 143/83 93 Room Air 10/08/16 09:39 36.8 72 16 123/73 93 Room Air 10/08/16 09:38 123/73 10/08/16 09:35 76 19 92 10/08/16 09:35 76 19 10/08/16 09:33 145/76 10/08/16 09:30 75 19 10/08/16 09:30 74 19 94 10/08/16 09:29 78 21 98 10/08/16 09:29 76 21 10/08/16 09:28 131/73 10/08/16 09:24 79 21 96 10/08/16 09:24 76 21 10/08/16 09:23 127/80 10/08/16 09:19 73 22 100 10/08/16 09:19 73 22 10/08/16 09:18 139/84 10/08/16 09:16 70 23 10/08/16 09:16 79 23 100 10/08/16 09:13 128/88 10/08/16 09:11 73 18 10/08/16 09:11 74 18 100 10/08/16 09:10 82 13 152/74 100 Mask 10 10/08/16 09:08 152/74 10/08/16 09:06 75 16 100 10/08/16 09:06 75 16 10/08/16 09:02 137/78 10/08/16 09:01 84 19 10/08/16 09:01 37.0 77 14 137/76 97 Mask 10 10/08/16 09:01 84 19 /95 100 10/08/16 08:00 Room Air 10/08/16 07:15 37.1 81 18 108/60 93 Room Air General Appearance: WD/WN, no apparent distress Head: normocephalic, atraumatic Neck: supple, trachea midline Incision(s): clean, drainage (bloody normal drainage), findings (packing almost out; removed) Extremities: non-tender, no pedal edema Laboratory Results: Results Past 24 Hours Test 10/09/16 04:44 Range/Units Assessment & Plan s/p I&D perirectal abscess -dressing daily and after baths/showers -po abx -discharge per medical team
[2016-10-09 08:12] LABS: MEAN CELL VOLUME 89.8 fL (80-100); MEAN CORPUSCULAR HEMOGLOBIN 29.6 pg (25-34); MEAN PLATELET VOLUME 10.4 fL (7.4-10.4); PLATELET COUNT 282 K/uL (130-400); RED BLOOD COUNT 4.12 M/uL (4.7-6.1); WHITE BLOOD COUNT 10.39 K/uL (4.8-10.8)
[2016-10-09 08:23] VITALS: BP 108/60; PULSE 60; TEMP 36.8; O2SAT 94
[2016-10-09 08:41] LABS: BUN/CREATININE RATIO 13.3 (10-20); CALCIUM 9.1 mg/dl (8.5-10.1); MAGNESIUM 1.8 mg/dl (1.8-2.4); POTASSIUM 3.6 mmol/L (3.5-5.1)
[2016-10-09] MEDS: CIPROFLOXACIN 500 MG TAB PO SCH (08:43)
[2016-10-09] MEDS: METRONIDAZOLE 250 MG TAB PO SCH (08:43)
[2016-10-09] MEDS: PANTOprazole SOD 40 MG TAB PO SCH (08:44)
[2016-10-09] MEDS: DOCUSATE SODIUM 100 MG CAP PO SCH (08:44)
[2016-10-09] MEDS: ATORVASTATIN 20 MG TAB PO SCH (08:44)
[2016-10-09] MEDS: MULTIVITAMIN TAB PO SCH (08:44)
[2016-10-09 08:48] VITALS: O2SAT 94
[2016-10-09] MEDS ORDERED: HYDROCHLOROTHIAZIDE 50 MG TAB PO SCH (09:00)
[2016-10-09] MEDS ORDERED: LISINOPRIL 20 MG TAB PO SCH (09:00)
[2016-10-09 09:41] VITALS: BP 108/60; PULSE 60; TEMP 36.8; O2SAT 94
--- NOTE | 2016-10-09 10:05 | Progress Note ---
Internal Med Progress Note Date of Service: Oct 09, 2016. Provider Documentation: SUBJECTIVE: Patient6 is doing well. Pain is tolerable. Denies any nausea/vomiting. No other new change or complaint. OBJECTIVE: Vital Signs-as noted below Examination: General Appearance: WD/WN, In no distress. Head: normocephalic, atraumatic Eyes: normal inspection, PERRL, EOMI, sclerae normal, ENT: normal ENT inspection, hearing grossly normal, pharynx normal, no upper teeth Neck: supple, no adenopathy, thyroid normal, no JVD, trachea midline Respiratory/Chest: lungs clear, no respiratory distress, no accessory muscle use Cardiovascular: regular rate, rhythm, no gallop, no JVD, no murmur, normal peripheral pulses, Abdomen/GI: normal bowel sounds, non tender, soft, no organomegaly, no pulsatile mass, right perirectal pain on palpation but area is dressed. 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 ASSESSMENT & PLAN: PERIRECTAL ABSCESS: S/P I & D and has been doing well clinically. -Continue Cipro & Flagyl for total 10 days. -Pain meds as needed -Added Stool softeners as has history of chronic constipation HYPERTENSION:Hemodynamically stable. -Started home medications. SLEEP APNEA: Continue CPAP. HYPOMAGNESEMIA: Resolved. DYSLIPIDEMIA: Continue atorvastatin. VTE PROPHYLAXIS: SCDs. Ambulate. RESUSCITATION STATUS: Discussed with patient upon admission. He has a living will. He would like resuscitation attempted in the event of a cardiopulmonary arrest if there is a reasonable chance of a meaningful recovery, but does not want prolonged extraordinary measures if prognosis is poor. Therefore, code status = "Level 1" (full resuscitation). Disposition: Discharge home later today. Follow up as per surgical advice. Vital Signs: Date Time Temp Pulse Resp B/P Pulse Ox O2 Delivery O2 Flow Rate FiO2 10/09/16 09:41 36.8 60 18 94 Room Air 10/09/16 08:48 94 Room Air 10/09/16 08:23 36.8 60 18 108/60 94 Room Air 10/09/16 07:40 Room Air 10/09/16 03:32 37.1 64 16 120/68 91 Room Air 10/08/16 22:58 36.9 69 16 99/63 93 Room Air 10/08/16 20:50 72 18 119/62 95 Room Air 10/08/16 19:40 Room Air 10/08/16 16:59 Room Air 10/08/16 15:45 37.0 66 18 108/69 95 Room Air 10/08/16 12:50 63 18 105/70 94 Room Air 10/08/16 12:00 36.6 10/08/16 11:00 76 16 127/74 94 Room Air 10/08/16 10:30 71 16 111/69 96 Room Air 10/08/16 10:11 37.9 73 16 135/82 93 Room Air Lab Results: Results Past 24 Hours Test 10/09/16 07:08 Range/Units White Blood Count 10.39 4.8-10.8 K/uL Red Blood Count 4.12 4.7-6.1 M/uL Hemoglobin 12.2 14.0-18.0 g/dL Hematocrit 37.0 42-52 % Mean Corpuscular Volume 89.8 80-100 fL Mean Corpuscular Hemoglobin 29.6 25-34 pg Mean Corpuscular Hemoglobin Concent 33.0 32-36 g/dl RDW Standard Deviation 42.2 36.4-46.3 fL RDW Coefficient of Variation 13.0 11.5-14.5 % Platelet Count 282 130-400 K/uL Mean Platelet Volume 10.4 7.4-10.4 fL Sodium Level 138 136-145 mmol/L Potassium Level 3.6 3.5-5.1 mmol/L Chloride Level 100 98-107 mmol/L Carbon Dioxide Level 27 21-32 mmol/L Anion Gap 11.0 3-11 mmol/L Blood Urea Nitrogen 13 7-18 mg/dl Creatinine 1.00 0.60-1.40 mg/dl Est Creatinine Clear Calc Drug Dose 89.2 ml/min Estimated GFR () 86.8 Estimated GFR (Non- 74.9 BUN/Creatinine Ratio 13.3 10-20 Random Glucose 131 70-99 mg/dl Calcium Level 9.1 8.5-10.1 mg/dl Magnesium Level 1.8 1.8-2.4 mg/dl
[2016-10-09] MEDS ORDERED: DOCU-94 PO (10:13)
--- NOTE | 2016-10-09 10:13 | Discharge Summary ---
Discharge Summary Admission Date: Oct 08, 2016 at 03:08 Discharge Date: Oct 09, 2016 Discharge Disposition: Home Principal Diagnosis: Perirectal Abscess (I & D done) Hypomagnesemia (Resolved) Secondary Diagnoses/Problems: Hypertension Dyslipidemia Sleep Apnea Procedures: I & D done Vaccinations: NONE Consultations: General Surgery Pending Studies/Follow-Up: Follow up with Surgery as outpatient. Medication Reconciliation New Medications: Ciprofloxacin Hcl (Cipro) 500 Mg Tab 500 MG PO BID, #20 TAB Docusate Sodium (Colace) 100 Mg Cap 1 CAP PO BID for 15 Days, #30 CAP Hydrocodone/Acetaminophen 5MG/325MG ([place] 5MG/325MG) Tab 1-2 TABLET PO Q4H PRN for Pain, #40 TAB Metronidazole (Flagyl) 250 Mg Tab 250 MG PO TID, #30 TAB Continued Medications: Acetaminophen (Tylenol Arthritis Ext Rel) 650 Mg Cplt 650 MG PO BID, CAP Aspirin (Aspirin 81) 81 Mg Tab 81 MG PO 3XWK TAKE ON TUESDAY/TUESDAY/TUESDAY Atorvastatin (Lipitor) 40 Mg Tab 40 MG PO DAILY, TAB Cholecalciferol (Vitamin D3) 1,000 Unit Tab 1000 UNITS PO DAILY Docusate Sodium (Stool Softener) 100 Mg Cap 100 MG PO BID Hydrochlorothiazide (Hctz) 50 Mg Tab 50 MG PO DAILY, TAB Lansoprazole (Prevacid) 15 Mg Capcr 15 MG PO DAILY, CAP Lisinopril (Zestril) 20 Mg Tab 20 MG PO DAILY, TAB Multivitamin (Multivitamin) Tab 1 TAB PO DAILY, TAB Admission Information HPI (per Admitting provider): 70 YO male from [place], visiting family in the area. History of hypertension, dyslipidemia, sleep apnea, and other problems noted below. Developed rectal pain a few weeks ago which has worsened. Pain: nonradiating, constant, aggravated by sitting, severe intensity. He did not try taking any analgesics at home. No associated fever; no hematochezia. . Physical Exam (per Admitting): General Appearance: WD/WN, + mild distress Head: normocephalic, atraumatic Eyes: normal inspection, PERRL, EOMI, sclerae normal, + pertinent finding ( conjunctivae pink) ENT: normal ENT inspection, hearing grossly normal, pharynx normal, + pertinent finding (no upper teeth) Neck: supple, no adenopathy, thyroid normal, no JVD, trachea midline Respiratory/Chest: lungs clear, no respiratory distress, no accessory muscle use Cardiovascular: regular rate, rhythm, no gallop, no JVD, no murmur, normal peripheral pulses, + pertinent finding (1+ pretibial edema) Abdomen/GI: normal bowel sounds, non tender, soft, no organomegaly, no pulsatile mass, + pertinent finding (right perirectal induration + tenderness) Extremities/Musculoskelatal: normal inspection, no calf tenderness, normal capillary refill 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 -Continue Cipro & Flagyl for total 10 days. -Pain meds as needed -Added Stool softeners as has history of chronic constipation HYPERTENSION:Hemodynamically stable. -Started home medications. SLEEP APNEA: Continue CPAP. HYPOMAGNESEMIA: Resolved. DYSLIPIDEMIA: Continue atorvastatin. VTE PROPHYLAXIS: SCDs. Ambulate. RESUSCITATION STATUS: Discussed with patient upon admission. He has a living will. He would like resuscitation attempted in the event of a cardiopulmonary arrest if there is a reasonable chance of a meaningful recovery, but does not want prolonged extraordinary measures if prognosis is poor. Therefore, code status = "Level 1" (full resuscitation). Disposition: Discharge home later today. Follow up as per surgical advice. Total time spent on discharge = 38 minutes. This includes examination of the patient, discharge planning, medication reconciliation, and communication with other providers. Discharge Instructions Discharge Goals Goal(s): Decrease discomfort, Improve function Activity Recommendations Activity Limitations: resume your previous activity Exercise/Sports Limitations: until after follow-up appointment Shower/Bathe: tomorrow . Instructions / Follow-Up Instructions / Follow-Up call tuesday morning [phone] for follow up appointment with ... I want to see you sometime tuesday. Ok to take sitz baths Current Hospital Diet Patient's current hospital diet: Discharge Diet Recommended Diet: Regular Diet
[2016-10-11] MEDS ORDERED: ASPIRIN 81 MG ECTAB PO SCH (09:00)
== END 2016-10-09 11:10 | disposition home or self-care (01) | DRG 346 ==
LOC: ENRESERVTM → ENRESERVDT → C.EDB 00:35 → C.MSN 03:08
PROVIDERS: ADMIT Hospitalist; ATTEND Emergency Medicine
PROC: 0D9P0ZZ Drainage of Rectum, Open Approach (ICD-10-PCS; principal; 2016-10-08 08:00)
DX: K61.1 Rectal abscess (principal); E78.5 Hyperlipidemia, unspecified; E83.42 Hypomagnesemia; G47.30 Sleep apnea, unspecified; I10 Essential (primary) hypertension; K59.00 Constipation, unspecified

== ENCOUNTER 2021-02-15 13:51 | Observation (INO) ==
[2021-02-15] MEDS ORDERED: ceFAZolin 2000MG 2,000 MG/15 ML SYR IV STA (14:22)
--- NOTE | 2021-02-15 14:30 | Emergency Department Note ---
History of Present Illness General Chief complaint: Swelling/Edema to Extremity Stated complaint: LOWER LEGS SWOLLEN & RED Time Seen by Provider: 02/15/21 14:15 Source: patient and family History of Present Illness Provider complaint: Leg redness Onset (ago): week(s) 4 Location: lower extremity, left and right Radiation: non-radiation Pain Consistency: + constant Maximum Pain Intensity: 3 Quality: + other ("Discomfort ") Relieved By: + none Associated symptoms: no chest pain, no cough, no fever/chills, no headaches, no nausea/vomiting and no shortness of breath This is a 75-year-old male with history of chronic edema to his lower extremities presenting with discoloration to both of his lower legs. He states it started about 4 weeks ago. He denies having any tick bite. He states he has had no injury. He states is not painful other than a mild discomfort. It does involve both shins and a little bit of the posterior lower leg on the left side which is seeping fluid. He has been applying antibiotic ointment to it. He has not seen a doctor for this. They are visiting from [place] and plans to go back later this month. He states that normally at home he is able to elevate his feet to reduce his lower extremity edema. As he has been visiting here he has frequently had his legs dependent and so there is more swelling than usual. He denies any pain in the calves or thighs. He has had no chest pain or shortness of breath. He has had no fevers, headache, cough or cold symptoms, malaise, abdominal pain, vomiting, diarrhea or urinary symptoms. Allergies Allergy/AdvReac Type Severity Reaction Status Date / Time No Known Allergies Allergy Unverified 10/08/16 03:39 Past Med/Surg History Medical History Dyslipidemia Hypertension Pacemaker Surgical History Status post cholecystectomy Social History Smoking Status: Former smoker Feels Safe at Home: Yes Physical Exam Vital Signs Vital Signs - 24 hr 02/15/21 13:59 02/15/21 16:12 02/15/21 16:14 Temperature 36.4 C L Temperature Source Temporal Artery Scan Pulse Rate 70 73 70 Pulse Rate from SpO2 Sensor 72 70 Respiratory Rate 20 17 23 Respiratory Effort / Characteristics Non-Labored Spontaneous Respiratory Depth Normal Respiratory Pattern Regular Blood Pressure 154/96 H 173/102 H Blood Pressure Mean 115 125 Blood Pressure Position Sitting Pulse Oximetry 98 97 97 Oxygen Delivery Method Room Air Sepsis Recent Fever Within 48 Hours No Sepsis New/Unexplained Change in Mental Status N/A Sepsis Action Taken by Nursing No Action Required 02/15/21 16:20 02/15/21 16:31 02/15/21 16:32 Temperature Temperature Source Pulse Rate 70 89 70 Pulse Rate from SpO2 Sensor 70 71 Respiratory Rate 16 22 21 Respiratory Effort / Characteristics Respiratory Depth Respiratory Pattern Blood Pressure 173/112 H Blood Pressure Mean 132 Blood Pressure Position Pulse Oximetry 97 93 Oxygen Delivery Method Sepsis Recent Fever Within 48 Hours Sepsis New/Unexplained Change in Mental Status Sepsis Action Taken by Nursing 02/15/21 16:40 02/15/21 17:00 02/15/21 17:01 Temperature Temperature Source Pulse Rate 70 76 70 Pulse Rate from SpO2 Sensor 70 70 70 Respiratory Rate 16 14 16 Respiratory Effort / Characteristics Respiratory Depth Respiratory Pattern Blood Pressure 146/84 H Blood Pressure Mean 104 Blood Pressure Position Pulse Oximetry 93 95 96 Oxygen Delivery Method Sepsis Recent Fever Within 48 Hours Sepsis New/Unexplained Change in Mental Status Sepsis Action Taken by Nursing 02/15/21 17:10 Temperature Temperature Source Pulse Rate 70 Pulse Rate from SpO2 Sensor 70 Respiratory Rate 16 Respiratory Effort / Characteristics Respiratory Depth Respiratory Pattern Blood Pressure Blood Pressure Mean Blood Pressure Position Pulse Oximetry 97 Oxygen Delivery Method Sepsis Recent Fever Within 48 Hours Sepsis New/Unexplained Change in Mental Status Sepsis Action Taken by Nursing Constitutional: Vital signs reviewed. Eyes: Pupils are equal round reactive to light. Conjunctiva are noninjected. ENT: Pharynx is clear without erythema or exudate. Mucous membranes are moist. Neck supple without meningeal signs. Respiratory: Clear to auscultation bilaterally. Breath sounds are equal bilaterally. Cardiovascular: Regular rate and rhythm. No rubs or gallops. GI: Soft, nondistended and nontender. Bowel sounds are present. Musculoskeletal: Significant bilateral pitting edema to the lower extremities. Normal distal capillary refill bilaterally. There is erythema to the anterior and posterior lateral aspect of the left lower chew with minimal tenderness. There is some increased warmth. There is some clear seepage of the wound posteriorly. The right lower chew demonstrates an almost rectangular area of erythema with some clearing with a more defined border and some clearing centrally. Integumentary: No cyanosis. or jaundice. As above. Neurological: The patient is awake and alert. No focal deficits. Psychiatric: Normal affect. Not anxious appearing. Course Administered Medications Discontinued Medications Cefazolin Sodium (Ancef 2000mg) 2,000 mg in 15 mls @ 3.75 mls/min IV NOW STA Stop: 02/15/21 14:25 Last Admin: 02/15/21 16:03 Dose: 3.75 mls/min Documented by: [id number] Ioversol (Optiray 350 500ml) 120 ml IV ONCE ONE Stop: 02/15/21 16:54 Last Admin: 02/15/21 16:53 Dose: 120 ml Documented by: [id number] Nitroglycerin (Nitroglycerin Sl 0.4 Mg/Tab Tab) Confirm Administered Dose 0.4 mg .ROUTE .STK-MED ONE Stop: 02/15/21 16:34 Last Admin: 02/15/21 16:42 Dose: 0.4 mg Documented by: [id number] Ondansetron HCl (Ondansetron Inj 2 Mg/Ml 2 Ml Vial) Confirm Administered Dose 4 mg .ROUTE .STK-MED ONE Stop: 02/15/21 16:10 Last Admin: 02/15/21 16:14 Dose: 4 mg Documented by: [id number] Medical Decision Making Differential Diagnosis Lymphedema, cellulitis, CHF, Lyme disease, MRSA Medical Records Attestation: I reviewed the patient's medical records. I did perform a limited focused review of portions of the patient's old chart on the electronic medical record. The patient has had no recent pertinent visits to this hospital. Home Medications Current Medication List: was personally reviewed by me Laboratory Data Attestation: I reviewed the patient's lab results. Result diagrams: 02/15/21 15:05 02/15/21 15:05 Lab Results 02/15/21 02/15/21 02/15/21 Range/Units 15:05 15:05 15:05 WBC 10.40 (4.8-10.8) K/uL RBC 4.62 L (4.7-6.1) M/uL Hgb 14.4 (14.0-18.0) g/dL Hct 44.1 (42-52) % MCV 95.5 (80-100) fL MCH 31.2 (25-34) pg MCHC 32.7 (32-36) g/dL RDW Std Deviation 48.4 H (36.4-46.3) fL RDW Coeff of Jeronimo 13.8 (11.5-14.5) % Plt Count 267 (130-400) K/uL MPV 9.8 (7.4-10.4) fL Immature Gran % (Auto) 0.4 % Neut % (Auto) 60.4 % Lymph % (Auto) 25.5 % Wharton % (Auto) 6.9 % Eos % (Auto) 6.3 % Baso % (Auto) 0.5 % Neut # (Auto) 6.29 (1.4-6.5) K/uL Lymph # (Auto) 2.65 (1.2-3.4) K/uL Wharton # (Auto) 0.72 H (0.11-0.59) K/uL Eos # (Auto) 0.65 H (0-0.5) K/uL Baso # (Auto) 0.05 (0-0.2) K/uL Immature Gran # (Auto) 0.04 H (0.00-0.02) K/uL Sodium 140 (136-145) mmol/L Potassium 4.3 (3.5-5.1) mmol/L Chloride 103 (98-107) mmol/L Carbon Dioxide 32 (21-32) mmol/L Anion Gap 5.0 (3-11) BUN 15 (7-18) mg/dl Creatinine 0.90 (0.6-1.4) mg/dl Est Cr Clr Drug Dosing 96.9 ml/min Est GFR ( Amer) 95.1 ml/min Est GFR (Non-Af Amer) 82.1 ml/min BUN/Creatinine Ratio 16.2 (10-20) Glucose 103 H (70-99) mg/dl Calcium 9.3 (8.5-10.1) mg/dl Total Bilirubin 0.5 (0.2-1) mg/dl AST 19 (15-37) U/L ALT 32 (12-78) U/L Alkaline Phosphatase 67 (45-117) U/L Troponin I < 0.015 (0-0.045) ng/ml Total Protein 7.2 (6.4-8.2) gm/dl Albumin 3.3 L (3.4-5.0) gm/dl Globulin 3.9 (2.5-4.0) gm/dl Albumin/Globulin Ratio 0.8 L (0.9-2) Lyme Disease IgG Ab Negative (Negative) Lyme Disease IgM Ab Negative (Negative) 02/15/21 Range/Units 17:11 WBC (4.8-10.8) K/uL RBC (4.7-6.1) M/uL Hgb (14.0-18.0) g/dL Hct (42-52) % MCV (80-100) fL MCH (25-34) pg MCHC (32-36) g/dL RDW Std Deviation (36.4-46.3) fL RDW Coeff of Jeronimo (11.5-14.5) % Plt Count (130-400) K/uL MPV (7.4-10.4) fL Immature Gran % (Auto) % Neut % (Auto) % Lymph % (Auto) % Wharton % (Auto) % Eos % (Auto) % Baso % (Auto) % Neut # (Auto) (1.4-6.5) K/uL Lymph # (Auto) (1.2-3.4) K/uL Wharton # (Auto) (0.11-0.59) K/uL Eos # (Auto) (0-0.5) K/uL Baso # (Auto) (0-0.2) K/uL Immature Gran # (Auto) (0.00-0.02) K/uL Sodium (136-145) mmol/L Potassium (3.5-5.1) mmol/L Chloride (98-107) mmol/L Carbon Dioxide (21-32) mmol/L Anion Gap (3-11) BUN (7-18) mg/dl Creatinine (0.6-1.4) mg/dl Est Cr Clr Drug Dosing ml/min Est GFR ( Amer) ml/min Est GFR (Non-Af Amer) ml/min BUN/Creatinine Ratio (10-20) Glucose (70-99) mg/dl Calcium (8.5-10.1) mg/dl Total Bilirubin (0.2-1) mg/dl AST (15-37) U/L ALT (12-78) U/L Alkaline Phosphatase (45-117) U/L Troponin I < 0.015 (0-0.045) ng/ml Total Protein (6.4-8.2) gm/dl Albumin (3.4-5.0) gm/dl Globulin (2.5-4.0) gm/dl Albumin/Globulin Ratio (0.9-2) Lyme Disease IgG Ab (Negative) Lyme Disease IgM Ab (Negative) Imaging Data Radiologist's Impression: Chest X-Ray 02/15/21 16:30 XR chest 1V portable CLINICAL HISTORY: Chest pain. COMPARISON STUDY: Chest radiograph October 08, 2016. FINDINGS: Dual lead left subclavian pacemaker is in place. Note is made of cardiomegaly without evidence for pulmonary edema. There is no consolidation. No pneumothorax or pleural effusion is present. IMPRESSION: No acute cardiopulmonary findings. Mild cardiomegaly. ACT 112: Negative or not required by law. Electronically signed by: Maxim London M.D. 02/15/2021 4:59 PM Chest CTA 02/15/21 16:38 CT ANGIOGRAM OF THE CHEST CLINICAL HISTORY: cp eval for PE COMPARISON STUDY: No previous studies for comparison. TECHNIQUE: Following the IV administration of mL of Optiray, CT angiogram of the thorax was performed from the thoracic inlet to the lung bases utilizing the pulmonary embolus protocol. Images are reviewed in the axial, sagittal, and coronal planes. IV contrast was administered without complication. MIP imaging was performed. A dose lowering technique was utilized adhering to the principles of ALARA. CT DOSE: 843.68 mGy.cm FINDINGS: There is adequate opacification of the main pulmonary artery however evaluation of peripheral branches of pulmonary artery are limited due to respiratory motion artifact. No definite central pulmonary embolus is seen. There is no right heart strain. Main pulmonary artery is dilated which could be seen in pulmonary hypertension. There is mild ectasia of ascending aorta is seen measuring up to 4.1 cm in diameter. Descending thoracic aorta is normal in caliber, slightly tortuous with scattered calcifications of its wall. Thyroid gland is not well seen. There is small fat-containing hiatal hernia. There is no axillary, supra clavicle or internal mammary lymphadenopathy seen. Mediastinal lymph nodes are not enlarged. Tracheobronchial tree is patent. This study was acquired during partial expiratory phase. No infiltrates or consolidative lesions are seen. Mild atelectasis is seen at bilateral bases and dependent portions of right and left lower lobes. No pleural effusion demonstrated. -5 mm subpleural pulmonary nodule is seen within inferior aspect of the right upper lobe (4/136) No other pulmonary nodules are seen however evaluation is significantly limited due to respiratory motion artifact. Limited evaluation of upper abdominal viscera shows no evidence of acute abnormalities and status post cholecystectomy. Visualized portion of the pancreas is atrophic. Osseous structures: Multilevel degenerative changes of the spine. IMPRESSION: 1. No definite pulmonary embolus is seen however evaluation peripheral branches of pulmonary artery is limited due to respiratory motion artifact. 2. No infiltrates or consolidative lesions are seen. 3. Mildly dilated pulmonary artery which could be seen in pulmonary hypertension. 4. Ectasia of ascending aorta. Atherosclerosis. 5. Status post cholecystectomy. Atrophic pancreas. 6. 5 mm pulmonary nodule within the right upper lobe. Follow-up evaluation in 12 months is optional per Fleischner Society guidelines. Please refer to below summary of Fleischner criteria recommendations for follow- up of incidental CT nodules (Avila Rahman, Guidelines for management of small pulmonary nodules detected on CT scans: A statement from the Fleischner Society, Radiology 237: [phone].) SOLID NODULES Solitary nodule size: <6 mm * low risk patients: no follow-up needed * high risk patients: optional CT at 12 months Solitary nodule size: 6-8 mm * low risk patients: follow-up at 6-12 months, then consider further follow-up at 18-24 months * high risk patients: initial follow-up CT at 6-12 months and then at 18-24 months if no change Solitary nodule size: >8 mm * either low or high risk patients - consider follow-up CT at 3 months, and/or CT-PET, and/or biopsy Multiple nodules size: <6 mm * low risk patients: no routine follow-up * high risk patients: optional CT at 12 months Multiple nodules size: 6-8 mm * low risk patients: follow-up at 3-6 months, then consider further follow-up at 18-24 months * high risk patients: follow-up at 3-6 months, then at 18-24 months if no change Multiple nodules size: >8 mm * low risk patients: follow-up at 3-6 months, then consider further follow-up at 18-24 months * high risk patients: follow-up at 3-6 months, then at 18-24 months if no change Note: newly detected indeterminate nodule in persons 35 years of age or older. * low risk patients: minimal or absent history of smoking and/or other known risk factors * high risk patients: history of smoking or of other known risk factors (e.g. first degree relative with lung cancer, or exposure to asbestos, radon, uranium) * if a nodule up to 8 mm is partly solid or is ground glass further follow-up is required after 24 months to exclude possible slow growing adenocarcinoma (SHAY) SUBSOLID NODULES Solitary pure ground-glass nodule * nodule size <6 mm - no CT follow-up required * nodule size >=6 mm - follow-up CT at 6-12 months, then every 2 years until 5 years Solitary part-solid nodule * nodule size <6 mm - no CT follow-up required * nodule size >=6 mm - follow-up CT at 3-6 months. If unchanged, and solid component remains <6 mm, then annual follow-up for 5 years Multiple subsolid nodules * nodule size <6 mm - follow-up CT at 3-6 months, consider further follow-up at 2 and 4 years if stable * nodule size >=6 mm - follow-up CT at 3-6 months, subsequent management based on the most suspicious nodule(s) ACT 112: Positive. There are findings on this exam that require communication between the performing entity and the patient following Patient Test Result Information Act ([place] Act 112) guidelines. The above report was generated using voice recognition software. It may contain grammatical, syntax or spelling errors. Electronically signed by: Светлана Humphrey DO 02/15/2021 5:33 PM ECG Data Attestation: I personally reviewed and interpreted this ECG as follows: Indication: + chest pain Rate (beats per minute): 70 Rhythm: + other (Atrial paced rhythm) ECG ST segments: no ST elevation ECG Findings: no PACs and no PVCs MDM Narrative I did evaluate the patient as noted above. The patient is presenting with worsening dependent edema and what appears to be cellulitis to his lower extremities. He states that normally at home he has a recliner to elevate his legs but since he is visiting here he has been keeping his legs dependent which has worsened his swelling. 4 weeks ago he developed redness to lower shins. IV access was established. I did order 2 sets of blood cultures. I did order and review the patient's blood work as noted in the electronic medical record. His white count is 10.4. CBC is otherwise unremarkable. Electrolytes are unremarkable. Lyme testing is negative. I did treat the patient with 2 g of IV Ancef. After receiving the medication the patient developed diaphoresis and hypertension with nausea and chest discomfort. He describes it as a pressure in his chest rating into his throat. He also had it in his upper abdomen. The nurse stated that he was about to flush the medicine when the patient started to feel unwell. It seems unlikely that he would have a GI reaction to an IV medication. The patient has no hives or erythema to the right upper extremity. I did place an order for continuous cardiac monitoring. The monitor showed a paced rhythm at the rate of 70. I did order and personally review the patient's 12-lead EKG as described above. He has a paced rhythm without ectopy or acute ischemia. I did order a CT angiogram of the chest to rule out PE. I did review the images myself as well as the radiology report as described above. There is no evidence of pulmonary embolism. I did reassess the patient. He states he is feeling much better and has no symptoms after being given his sublingual nitroglycerin. I did discuss the test results with him and his . His troponin was negative. I did recommend hospitalization for further evaluation and repeat cardiac biomarkers. I also ordered a Doppler of his lower extremities to rule out DVT which is currently pending. I did discuss case with the hospitalist and senior case manager.He was given aspirin p.o. Impression & Plan Cellulitis, Bilateral edema of lower extremity, Acute chest pain Discharge Plan Visit Data Chief Complaint: Swelling/Edema to Extremity Stated Complaint: LOWER LEGS SWOLLEN & RED ED Provider: Anthony Jordan Discharge Problem: Cellulitis, Bilateral edema of lower extremity, Acute chest pain Patient Disposition: Being Evaluated by Hospitalist Condition: Good Discharge Instructions Lisa/Other Patient Handouts: ED Cellulitis, ED Leg Swelling in Both Legs Activity Restrictions/Additional Instructions: You have been examined and treated today on an emergency basis only. This is not a substitute for, or an effort to provide, complete comprehensive medical care. It is impossible to recognize and treat all injuries or illnesses in a single emergency department visit. It is therefore important that you follow up closely with a physician this week. Call as soon as possible for an appointment. Discuss any test results from today with your doctor which may include incidental findings not brought up by the physician today. Return for worsening symptoms or if you develop fever, vomiting, or any other concerning symptoms. Referrals Referrals: PCP,NO [Primary Care Provider] - Discharge Problem: Cellulitis Qualifiers: Site of cellulitis: extremity Site of cellulitis of extremity: lower extremity Laterality: unspecified laterality Qualified Code(s): L03.119 - Cellulitis of unspecified part of limb
[2021-02-15 15:17] LABS: Basophils # (auto) 0.05 K/uL (0-0.2); Basophils % (auto) 0.5 %; Eosinophils # (auto) 0.65 K/uL (0-0.5); Eosinophils % (auto) 6.3 %; Hematocrit (blood only) 44.1 % (42-52); Hemoglobin 14.4 g/dL (14.0-18.0); Immature Granulocytes # (auto) 0.04 K/uL (0.00-0.02); Immature Granulocytes % (auto) 0.4 %; Lymphocytes # (auto) 2.65 K/uL (1.2-3.4); Lymphocytes % (auto) 25.5 %; Mean Corpuscular Hemoglobin 31.2 pg (25-34); Mean Corpuscular Hgb Conc 32.7 g/dL (32-36); Mean Corpuscular Volume 95.5 fL (80-100); Mean Platelet Volume 9.8 fL (7.4-10.4); Monocytes # (auto) 0.72 K/uL (0.11-0.59); Monocytes % (auto) 6.9 %; Neutrophils # (auto) 6.29 K/uL (1.4-6.5); Neutrophils % (auto) 60.4 %; Platelet Count 267 K/uL (130-400); RDW Coefficient of Variation 13.8 % (11.5-14.5); RDW Standard Deviation 48.4 fL (36.4-46.3); Red Blood Count 4.62 M/uL (4.7-6.1)
[2021-02-15 15:33] LABS: Alanine Aminotransferase 32 U/L (12-78); Albumin Level 3.3 gm/dl (3.4-5.0); Aspartate Aminotransferase 19 U/L (15-37); BUN Creatinine Ratio 16.2 (10-20); Blood Urea Nitrogen 15 mg/dl (7-18); Calcium 9.3 mg/dl (8.5-10.1); Carbon Dioxide 32 mmol/L (21-32); Chloride 103 mmol/L (98-107); Creatinine Clr Calc Pharmacy 96.9 ml/min; Est GFR (African American) 95.1 ml/min; Est GFR (Non-African American) 82.1 ml/min; Glucose 103 mg/dl (70-99); Potassium 4.3 mmol/L (3.5-5.1); Sodium 140 mmol/L (136-145)
[2021-02-15 15:35] LABS: Albumin Globulin Ratio 0.8 (0.9-2); Alkaline Phosphatase 67 U/L (45-117); Bilirubin,Total 0.5 mg/dl (0.2-1); Globulin 3.9 gm/dl (2.5-4.0); Total Protein 7.2 gm/dl (6.4-8.2)
[2021-02-15 16:08] LABS: Lyme Ab IgG w/WB Rflx Negative (Negative); Lyme Ab IgM w/WB Rflx Negative (Negative)
[2021-02-15] MEDS ORDERED: ONDANSETRON INJ 2 MG/ML 2 ML VIAL ONE (16:09)
[2021-02-15] MEDS ORDERED: NITROGLYCERIN SL 0.4 MG/TAB TAB ONE (16:33)
[2021-02-15 16:50] LABS: Troponin I < 0.015 ng/ml (0-0.045)
[2021-02-15] MEDS ORDERED: OPTIRAY 350 500ml IV ONE (16:53)
--- NOTE | 2021-02-15 17:00 | XRay Report ---
XR chest 1V portable CLINICAL HISTORY: Chest pain. COMPARISON STUDY: Chest radiograph October 08, 2016. FINDINGS: Dual lead left subclavian pacemaker is in place. Note is made of cardiomegaly without evide nce for pulmonary edema. There is no consolidation. No pneumothorax or pleural effusion is present. IMPRESSION: No acute cardiopulmonary findings. Mild cardiomegaly. ACT 112: Negative or not required by law. Electronically signed by: Maxim London M.D. 02/15/2021 4:59 PM
--- NOTE | 2021-02-15 17:35 | CT Scan Report ---
CT ANGIOGRAM OF THE CHEST CLINICAL HISTORY: cp eval for PE COMPARISON STUDY: No previous studies for comparison. TECHNIQUE: Following the IV administration of mL of Optiray, CT angiogram of the thorax was performed from the thoracic inlet to the lung bases utilizing the pulmonary embolus protocol. Images are revie wed in the axial, sagittal, and coronal planes. IV contrast was administered without complication. IL P imaging was performed. A dose lowering technique was utilized adhering to the principles of ALARA. CT DOSE: 843.68 mGy.cm FINDINGS: There is adequate opacification of the main pulmonary artery however evaluation of peripheral branche s of pulmonary artery are limited due to respiratory motion artifact. No definite central pulmonary embolus is seen. There is no right heart strain. Main pulmonary artery is dilated which could be seen in pulmonary hypertension. There is mild ectasia of ascending aorta is seen measuring up to 4.1 cm in diameter. Descending thora cic aorta is normal in caliber, slightly tortuous with scattered calcifications of its wall. Thyroid gland is not well seen. There is small fat-containing hiatal hernia. There is no axillary, supra clavicle or internal mammary lymphadenopathy seen. Mediastinal lymph nodes are not enlarged. Tracheobronchial tree is patent. This study was acquired during partial expiratory phase. No infiltrates or consolidative lesions are seen. Mild atelectasis is seen at bilateral bases and dependent portions of right and left lower lobes. No pleural effusion demonstrated. -5 mm subpleural pulmonary nodule is seen within inferior aspect of the right upper lobe (4/136) No other pulmonary nodules are seen however evaluation is significantly limited due to respiratory mo tion artifact. Limited evaluation of upper abdominal viscera shows no evidence of acute abnormalities and status pos t cholecystectomy. Visualized portion of the pancreas is atrophic. Osseous structures: Multilevel degenerative changes of the spine. IMPRESSION: 1. No definite pulmonary embolus is seen however evaluation peripheral branches of pulmonary artery is limited due to respiratory motion artifact. 2. No infiltrates or consolidative lesions are seen. 3. Mildly dilated pulmonary artery which could be seen in pulmonary hypertension. 4. Ectasia of ascending aorta. Atherosclerosis. 5. Status post cholecystectomy. Atrophic pancreas. 6. 5 mm pulmonary nodule within the right upper lobe. Follow-up evaluation in 12 months is optional per Fleischner Society guidelines. Please refer to below summary of Fleischner criteria recommendations for follow-up of incidental CT n merly Rahman, Guidelines for management of small pulmonary nodules detected on CT scans: A lyndsey jamison from the Fleischner Society, Radiology 237: [phone].) SOLID NODULES Solitary nodule size: <6 mm * low risk patients: no follow-up needed * high risk patients: optional CT at 12 months Solitary nodule size: 6-8 mm * low risk patients: follow-up at 6-12 months, then consider further follow-up at 18-24 months * high risk patients: initial follow-up CT at 6-12 months and then at 18-24 months if no change Solitary nodule size: >8 mm * either low or high risk patients - consider follow-up CT at 3 months, and/or CT-PET, and/or biopsy Multiple nodules size: <6 mm * low risk patients: no routine follow-up * high risk patients: optional CT at 12 months Multiple nodules size: 6-8 mm * low risk patients: follow-up at 3-6 months, then consider further follow-up at 18-24 months * high risk patients: follow-up at 3-6 months, then at 18-24 months if no change Multiple nodules size: >8 mm * low risk patients: follow-up at 3-6 months, then consider further follow-up at 18-24 months * high risk patients: follow-up at 3-6 months, then at 18-24 months if no change Note: newly detected indeterminate nodule in persons 35 years of age or older. * low risk patients: minimal or absent history of smoking and/or other known risk factors * high risk patients: history of smoking or of other known risk factors (e.g. first degree relative with lung cancer, or exposure to asbestos, radon, uranium) * if a nodule up to 8 mm is partly solid or is ground glass further follow-up is required after 24 m onths to exclude possible slow growing adenocarcinoma (SHAY) SUBSOLID NODULES Solitary pure ground-glass nodule * nodule size <6 mm - no CT follow-up required * nodule size >=6 mm - follow-up CT at 6-12 months, then every 2 years until 5 years Solitary part-solid nodule * nodule size <6 mm - no CT follow-up required * nodule size >=6 mm - follow-up CT at 3-6 months. If unchanged, and solid component remains <6 mm, then annual follow-up for 5 years Multiple subsolid nodules * nodule size <6 mm - follow-up CT at 3-6 months, consider further follow-up at 2 and 4 years if sta ble * nodule size >=6 mm - follow-up CT at 3-6 months, subsequent management based on the most suspiciou s nodule(s) ACT 112: Positive. There are findings on this exam that require communication between the performing entity and the patient following Patient Test Result Information Act ([place] Act 112) guidelines. The above report was generated using voice recognition software. It may contain grammatical, syntax o r spelling errors. Electronically signed by: Светлана Humphrey DO 02/15/2021 5:33 PM
[2021-02-15] MEDS ORDERED: ASPIRIN 81 MG CHEW PO STA (17:47)
--- NOTE | 2021-02-15 18:17 | History & Physical Report ---
Date of Service February 15, 2021 Assessment & Plan (1) Acute chest pain: Unclear etiology of chest pain, unclear on patient's personal cardiac history which she denies. However, patient has significant family history. Transient reaction to cephalosporin administration also possible Monitor and outs overnight Will trend cardiac enzymes Stress test in the morning to definitively rule out CAD Check TSH and fasting lipids Low-dose aspirin Monitor for further symptoms Of note, I did review the patient's medication list as he is on Eliquis 10 mg twice a day. Neither patient or knows indication, time he only that it was the blood thinner for his heart. He specifically denied a history of atrial fibrillation or pulmonary embolism when asked. Will continues for now, decreased to 5 mg twice a day. (2) Cellulitis: Patient did have mild cellulitis, says significant edema as noted Will hold off on cephalosporins or penicillins for now, will start Levaquin 500 mg p.o. daily, first dose now Monitor edema with leg elevation If improvement, can continue course after discharge (3) Sleep apnea: Patient uses a CPAP device nightly, will ask them to bring this in for use as inpatient (4) Dyslipidemia: Patient is on atorvastatin, will continue (5) Hypertension: Patient is on metoprolol, lisinopril, hydrochlorothiazide. We will continue History of Present Illness Chief Complaint: Lower extremity edema Primary Care Provider: NO PCP This is a 75-year-old male with past medical history hyperlipidemia, hypertension, previous symptomatic bradycardia status post pacemaker, and sleep apnea that presents today with lower extremity edema. Patient is accompanied by his and both are good historians. Patient is apparently from out of the area. They are visiting over the next 2 months while their house is being renovated as they have family in this area. Patient notes that he has chronic lower extremity edema but this is worsened over the past several weeks. He typically will elevate his legs at home and on his recliner but this is not available in the rental property. He became more concerned as there is some erythema forming on his calves, right over left. There is also some scarring which seems to be worsening and there is a minimal amount of drainage from the posterior left calf. This prompted the to bring the patient to the emergency room for further evaluation. The patient was evaluated by the ER physician and it was felt that he would be stable with outpatient antibiotics. He was given a dose of IV Ancef. He tells me as soon as he had this dose administered, he had chest tightness along with flushing and diaphoresis. There was some hypertension associated with this. This lasted approximately 20 minutes, the patient was given a nitroglycerin and symptoms essentially resolved. At time my evaluation, patient was back to baseline. Of note, patient tells me is under the care of a orchid grower at home. He thinks he may have had a cardiac catheterization approximately 6 years ago but does not recall the results and has had no work-up since. He does tell me that he has 2 brothers that suddenly, presumed to be myocardial infarctions. Allergies Allergy/AdvReac Type Severity Reaction Status Date / Time No Known Allergies Allergy Unverified 10/08/16 03:39 Past Med/Surg History Medical History (Updated 02/15/21 @ 18:03 by Aron Reynolds DO) Dyslipidemia Hypertension Pacemaker Sleep apnea Surgical History Status post cholecystectomy Social History Smoking Status: Former smoker Feels Safe at Home: Yes Review of Systems Constitutional: + body aches; no fever, no chills, no weakness, no weight loss and no weight gain Eyes: as per Subjective / HPI Respiratory: no cough, no chest congestion, no dyspnea and no dyspnea on exertion Cardiovascular: + chest pain and + dyspnea; no orthopnea, no palpitations, no lightheadedness, no edema and no calf pain Gastrointestinal: no abdominal pain, no nausea, no vomiting, no constipation and no diarrhea/loose stools Musculoskeletal: no back pain, no neck pain, no joint pain, no stiffness and no myalgia Integumentary: no rash Neurologic: no gait abnormality, no unsteadiness, no falls and no generalized weakness Physical Exam Constitutional: cooperative and comfortable; no acute distress Neck: trachea midline, no thyromegaly Respiratory: normal respiratory effort Auscultation: lungs clear to auscultation bilaterally; no crackles, no rales, no rhonchi and no wheezes Cardiovascular: Rate/Rhythm: regular rate and regular rhythm Heart Sounds: normal S1, normal S2 and + murmur Gastrointestinal (Abdomen): Inspection/Auscultation: abdomen normal to inspection Percussion/Palpation: abdomen soft; abdomen nontender, no guarding, abdomen not rigid and no hepatosplenomegaly Musculoskeletal: Bilateral legs with 3+ pitting edema bilaterally to the knee. Large flat area of erythema on outer distal calf on the right 1 with a ring of darker erythema. On the left, there is some scarring in the pretibial area. On the more dependent area, there is some small blisters with minimal serous drainage. Skin: no rashes, warm and dry Results & Data Results & Data ([facility]) Vital Signs (Past 12 Hours) Vital Signs Temp Pulse Resp BP Pulse Ox 02/15/21 17:10 70 16 97 02/15/21 17:01 70 16 146/84 H 96 02/15/21 17:00 76 14 95 02/15/21 16:40 70 16 93 02/15/21 16:32 70 21 173/112 H 93 02/15/21 16:31 89 22 02/15/21 16:20 70 16 97 02/15/21 16:14 70 23 97 02/15/21 16:12 73 17 173/102 H 97 02/15/21 13:59 36.4 C L 70 20 154/96 H 98 PG Care Time/CCT Total # of Minutes Spent Total Time Spent with Patient: Total time spent is greater than 50% in coordination of care (as documented) at patient's floor/unit and/or counseling patient: Coding Level of Care Code 32423 OBS Care - Level 3 Diagnoses Acute chest pain R07.9 Cellulitis L03.119 Laterality: unspecified laterality Site of cellulitis: extremity Site of cellulitis of extremity: lower extremity Sleep apnea G47.30 Dyslipidemia E78.5 Hypertension I10 (1) Cellulitis Laterality: unspecified laterality Site of cellulitis: extremity Site of cellulitis of extremity: lower extremity Qualified Code(s): L03.119 - Cellulitis of unspecified part of limb
--- NOTE | 2021-02-15 20:00 | Ultrasound Report ---
BILATERAL LOWER EXTREMITY VENOUS DOPPLER CLINICAL HISTORY: Bilateral lower extremity swelling. COMPARISON STUDY: No previous studies for comparison. TECHNIQUE: Sonography of the deep venous system of the bilateral lower extremities was performed. Co mpression and augmentation were evaluated. FINDINGS: The bilateral common femoral, superficial femoral and popliteal veins were compressible. A ugmentation was normal. Flow was shown within the deep calf vessels. IMPRESSION: No evidence of deep venous thrombus within the bilateral lower extremities. ACT 112: Negative or not required by law. Electronically signed by: Maxim London M.D. 02/15/2021 7:59 PM
[2021-02-15] MEDS ORDERED: ONDANSETRON INJ 2 MG/ML 2 ML VIAL IV PRN (20:18)
[2021-02-15] MEDS ORDERED: ACETAMINOPHEN 325 MG TAB PO PRN (20:18)
[2021-02-15] MEDS: PANTOprazole 40 MG TAB PO SCH (22:16)
[2021-02-15] MEDS: APIXABAN 5 MG TABLET PO SCH (22:16)
[2021-02-16 03:13] LABS: Basophils # (auto) 0.03 K/uL (0-0.2); Basophils % (auto) 0.3 %; Eosinophils # (auto) 0.61 K/uL (0-0.5); Eosinophils % (auto) 5.5 %; Hematocrit (blood only) 41.9 % (42-52); Hemoglobin 13.7 g/dL (14.0-18.0); Immature Granulocytes # (auto) 0.08 K/uL (0.00-0.02); Immature Granulocytes % (auto) 0.7 %; Lymphocytes # (auto) 2.89 K/uL (1.2-3.4); Mean Corpuscular Hemoglobin 30.5 pg (25-34); Mean Corpuscular Hgb Conc 32.7 g/dL (32-36); Mean Corpuscular Volume 93.3 fL (80-100); Mean Platelet Volume 10.2 fL (7.4-10.4); Monocytes % (auto) 6.3 %; Neutrophils % (auto) 61.2 %; Platelet Count 248 K/uL (130-400); RDW Coefficient of Variation 13.7 % (11.5-14.5); RDW Standard Deviation 46.3 fL (36.4-46.3); Red Blood Count 4.49 M/uL (4.7-6.1); White Blood Count 11.11 K/uL (4.8-10.8)
[2021-02-16 03:34] LABS: BUN Creatinine Ratio 14.7 (10-20); Calcium 9.1 mg/dl (8.5-10.1); Creatinine Clr Calc Pharmacy 107.6 ml/min; Est GFR (African American) 99.4 ml/min; Est GFR (Non-African American) 85.7 ml/min; Magnesium 1.9 mg/dl (1.8-2.4); Potassium 3.8 mmol/L (3.5-5.1)
[2021-02-16 08:18] VITALS: O2SAT 94
[2021-02-16] MEDS ORDERED: hydroCHLOROthiazide 25 MG TAB PO SCH (09:00)
[2021-02-16] MEDS ORDERED: lisinopril 40 MG TAB PO SCH (09:00)
[2021-02-16] MEDS ORDERED: ATORVASTATIN 40 MG TAB PO SCH (09:00)
[2021-02-16] MEDS ORDERED: METOPROLOL SUCC 25MG EXT REL TAB PO SCH (09:00)
[2021-02-16] MEDS ORDERED: DONEPEZIL HCL 5 MG TAB PO SCH (09:00)
[2021-02-16] MEDS: APIXABAN 5 MG TABLET PO SCH (10:13)
[2021-02-16] MEDS: PANTOprazole 40 MG TAB PO SCH (10:13)
[2021-02-16 10:59] VITALS: BP 124/68; TEMP 97.7
[2021-02-16] MEDS ORDERED: levoFLOXacin 500 MG TAB PO SCH (11:00)
--- NOTE | 2021-02-16 11:20 | Discharge Summary ---
Date of Service February 16, 2021 Admission HPI Per Admitting Provider This is a 75-year-old male with past medical history hyperlipidemia, hypertension, previous symptomatic bradycardia status post pacemaker, and sleep apnea that presents today with lower extremity edema. Patient is accompanied by his and both are good historians. Patient is apparently from out of the area. They are visiting over the next 2 months while their house is being renovated as they have family in this area. Patient notes that he has chronic lower extremity edema but this is worsened over the past several weeks. He typically will elevate his legs at home and on his recliner but this is not available in the rental property. He became more concerned as there is some erythema forming on his calves, right over left. There is also some scarring which seems to be worsening and there is a minimal a mount of drainage from the posterior left calf. This prompted the to bring the patient to the emergency room for further evaluation. The patient was evaluated by the ER physician and it was felt that he would be stable with outpatient antibiotics. He was given a dose of IV Ancef. He tells me as soon as he had this dose administered, he had chest tightness along with flushing and diaphoresis. There was some hypertension associated with this. This lasted approximately 20 minutes, the patient was given a nitroglycerin and symptoms essentially resolved. At time my evaluation, patient was back to baseline. Of note, patient tells me is under the care of a public safety telecommunicator at home. He thinks he may have had a cardiac catheterization approximately 6 years ago but does not recall the results and has had no work-up since. He does tell me that he has 2 brothers that suddenly, presumed to be myocardial infarctions. Principal Diagnosis Chest pain, suspect reaction to cephalosporin Discharge Exam Constitutional well developed, well nourished, + obese and comfortable; no acute distress Neck trachea midline, no thyromegaly Respiratory normal respiratory effort, lungs clear to auscultation Cardiovascular RRR, no murmur, no edema Gastrointestinal (Abdomen) normal bowel sounds, soft, nontender, no hepatosplenomegaly Musculoskeletal no cyanosis or clubbing, extremities motor strength 5/5 Skin no rashes, warm and dry Neurologic patellar DTR's 2+ bilat, sensation intact and PERRL, EOMI, accommodation nl, no face palsy, no dysarthria Psychiatric A+Ox3, euthymic affect Lymphatic no cervical or axillary lymphadenopathy Discharge Data Allergies Allergy/AdvReac Type Severity Reaction Status Date / Time No Known Allergies Allergy Unverified 02/15/21 19:32 Consultations 02/15/21 17:41 ED Decision to Admit Stat Ordered Studies 02/15/21 16:35 US venous doppler LE BI Stat 02/15/21 16:38 CT angio chest PE protocol Stat Hospital Course (1) Acute chest pain: Transient reaction to cephalosporin administration is the most likely explanation he came in for cellulitis, did not have chest pain at all when he came to the ED after getting Ancef he had epigastric discomfort, radiated up to his chest pain is completely resolved troponin is negative, no ischemic changes on EKG he follows with a public safety telecommunicator back home in [place] and he will be sure to follow up with them (2) Cellulitis: Patient did have mild cellulitis, says significant edema as noted redness is vastly improved, not hot or tender but still has some cellulitis, more on right lower leg will prescribe a course of Doxycycline 100mg BID follow up with his PCP when he goes back home (3) Sleep apnea: Patient uses a CPAP device nightly, will ask them to bring this in for use as inpatient (4) Dyslipidemia: Patient is on atorvastatin, will continue (5) Hypertension: Patient is on metoprolol, lisinopril, hydrochlorothiazide. We will continue Total Time Total Time Spent Total Time Spent (In Minutes): 31 Discharge Plan Discharge Items Patient Disposition: Home - Self-Care Reason For Visit: CHEST PAIN Discharge Diagnosis: Lower extremity cellulitis Condition on Discharge: Good Goals: finish a course of Doxycycline Activity: Resume your previous activity Non-emergency contact: Primary Care Provider Call non-emergency contact if: you have any medication questions Follow-up/Referrals: PCP,NO [Primary Care Provider] - Diet: Heart Healthy Addtl Attending Provider Instructions: Medications: - DOXYCYCLINE: 100mg twice a day x 10 days for cellulitis, start tomorrow morning hold your magnesium while on the doxycycline as this can interact Cellulitis: much improved after just a single dose of Cefazolin, however you had a reaction so will use Doxycycline instead which will provide adequate skin coverage no evidence of DVT on lower extremity doppler no concerns about the chest pain, diaphoresis as likely just a reaction to medication heart enzymes were negative x 3 sets, vitals stable, no events on tele monitor over night certainly if you have further bouts of chest pain/pressure or shortness of breath or sweats then return to the ED for evaluation Pending Studies at Discharge: No Stand-Alone Forms: My [facility], Smoking Cessation Medications and DC Order Prescriptions: New doxycycline hyclate 100 mg capsule 100 mg PO BID 10 Days Qty: 20 RF: 0 Continued multivitamin Tablet 1 tab PO DAILY RF: 0 atorvastatin [Lipitor] 40 mg tablet 40 mg PO QPM RF: 0 hydrochlorothiazide 50 mg tablet 50 mg PO DAILY RF: 0 donepezil 10 mg tablet 10 mg PO DAILY RF: 0 acetaminophen 650 mg Tablet Extended Release 650 mg PO Q12H PRN (Reason: Pain) RF: 0 lisinopril 10 mg tablet 10 mg PO DAILY RF: 0 metoprolol succinate 25 mg tablet extended release 24 hr 25 mg PO DAILY RF: 0 magnesium oxide 250 mg magnesium Tablet 250 mg PO DAILY RF: 0 cholecalciferol (vitamin D3) [Vitamin D3] 10 mcg (400 unit) Capsule 10 mcg PO DAILY RF: 0 Eliquis 5 mg tablet 5 mg PO BID RF: 0 lansoprazole 15 mg Capsule,Delayed Release(Dr/Ec) 15 mg PO DAILY RF: 0 Discharge Orders: Discharge Order (Routine); Ordered 02/16/21 Ordered By: Dino Cruz Admission Data Admit Date/Time: 02/15/21 18:33 Attending Provider: Dino Cruz Admit Provider: Aron Reynolds Primary Care Provider: PCP,NO Other Providers: Aron Reynolds Other Interventions: Discharge Summary Assessment (RN) Last Done: 02/16/21 12:51 Coding Level of Care Code 38415 OBS Care - Discharge Diagnoses Acute chest pain R07.9 Cellulitis L03.119 Laterality: unspecified laterality Site of cellulitis: extremity Site of cellulitis of extremity: lower extremity Sleep apnea G47.30 Dyslipidemia E78.5 Hypertension I10
[2021-02-16 12:53] VITALS: PULSE 74
--- NOTE | 2021-02-16 16:23 | Electrocardiogram Report ---
Test Reason : Blood Pressure : / mmHG Vent. Rate : 070 BPM Atrial Rate : 070 BPM P-R Int : 254 ms QRS Dur : 072 ms QT Int : 364 ms P-R-T Axes : -25 004 004 degrees QTc Int : 393 ms Atrial-paced rhythm with prolonged AV conduction Low voltage QRS Possible Inferior infarct , age undetermined Abnormal ECG When compared with ECG of 08-OCT-2016 03:42, Electronic atrial pacemaker has replaced Sinus rhythm Borderline criteria for Inferior infarct are now Present Confirmed by Surya Hinojosa ([id number]) on 02/16/2021 4:23:00 PM Referred By: REFERRED SELF Confirmed By:Surya Hinojosa
--- NOTE | 2021-02-16 22:31 | Electrocardiogram Report ---
Test Reason : Blood Pressure : / mmHG Vent. Rate : 070 BPM Atrial Rate : 070 BPM P-R Int : 226 ms QRS Dur : 088 ms QT Int : 374 ms P-R-T Axes : -10 019 005 degrees QTc Int : 403 ms Atrial-paced rhythm with prolonged AV conduction Low voltage QRS Abnormal ECG When compared with ECG of 15-FEB-2021 16:20, No significant change was found Confirmed by Surya Hinojosa ([id number]) on 02/16/2021 10:31:42 PM Referred By: REFERRED SELF Confirmed By:Surya Hinojosa
== END 2021-02-16 13:50 | disposition home or self-care (01) ==
LOC: ED 13:51 → 2E 13:51 → SUATTDRO 18:33 → 2E 20:20